=== PATIENT | female | born 1955 | race Caucasian/White ===

== ENCOUNTER 2020-10-27 12:05 | Emergency (ER) | payer MEDICARE, BC, OTHER ==
[2020-10-27 14:08] VITALS: BP 152/92; PULSE 80
--- NOTE | 2020-10-27 14:43 | CR ---
PROCEDURE INFORMATION: Exam: XR Right Wrist Exam date and time: 10/27/2020 2:23 PM Age: 65 years old Clinical indication: Pain; Wrist; Right; Additional info: Fall TECHNIQUE: Imaging protocol: XR Right wrist. Views: 3 or more views. COMPARISON: No relevant prior studies available. FINDINGS: Bones/joints: There is no evidence of acute fracture. There is no evidence of joint malalignment or dislocation. Soft tissues: There are no soft tissue masses or fluid collections. IMPRESSION: 1. No evidence of acute fracture. 2. No evidence of acute dislocation.
--- NOTE | 2020-10-27 14:44 | CR ---
PROCEDURE INFORMATION: Exam: XR Right Hip Exam date and time: 10/27/2020 2:19 PM Age: 65 years old Clinical indication: Hip pain; Right hip; Additional info: Fall TECHNIQUE: Imaging protocol: XR Right hip. Views: 1 view hip with pelvis when performed. COMPARISON: No relevant prior studies available. FINDINGS: Bones/joints: Advanced degenerative changes of the right hip. There is no evidence of acute fracture. There is no evidence of joint malalignment or dislocation. Soft tissues: There are no soft tissue masses or fluid collections. Gastrointestinal tract: A large amount of stool is noted throughout the colon. IMPRESSION: 1. Advanced degenerative changes of the right hip. 2. No evidence of acute fracture. 3. No evidence of acute dislocation. 4. A large amount of stool is noted throughout the colon.
--- NOTE | 2020-10-27 14:45 | EDM.PDOC ---
<Gerardo Blackmon Mayra - Last Filed: 10/27/20 14:49> ED HPI GENERAL MEDICAL PROBLEM - General Chief Complaint: Upper Extremity Injury/Pain Stated Complaint: INJURED RIGHT WRIST Time Seen by Provider: 10/27/20 14:40 Source of Information: Reports: Patient History Limitations: Reports: No Limitations - History of Present Illness INITIAL COMMENTS - FREE TEXT/NARRATIVE: 65 y/o F c/o R wrist pain since 7pm last night. Pt states she was walking out of her camper and slipped on the wet wooden deck. Pt states she fell on her out stretched R arm and now has 4/10 pain and swelling to the R wrist. No LOC. No blood thinners. Denies other injuries. 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 Pain Score (Numeric/FACES): 5 - Related Data Allergies Allergy/AdvReac Type Severity Reaction Status Date / Time erythromycin base Allergy Cannot Verified 10/27/20 14:08 Remember Home Meds: Home Meds Cyclobenzaprine [Flexeril] 10 mg PO DAILY PRN 07/13/15 [History] Diltiazem [Cardizem CD] 240 mg PO DAILY 07/13/15 [History] Escitalopram Oxalate [Lexapro] 20 mg pe PO DAILY 07/13/15 [History] Calcium Carbonate [Tums Extra Strength] 1,500 mg PO ASDIRECTED PRN 08/17/15 [History] Docusate Sodium [Dulcoease] 100 mg PO DAILY PRN 08/17/15 [History] Ibuprofen 600 mg PO TID PRN 08/17/15 [History] Past Medical History HEENT History: Reports: Impaired Vision Cardiovascular History: Reports: Hypertension Respiratory History: Reports: None Gastrointestinal History: Reports: Colon Polyp, GERD Genitourinary History: Reports: None Musculoskeletal History: Reports: Fracture, Fibromyalgia Neurological History: Reports: None Psychiatric History: Reports: Anxiety, Depression Endocrine/Metabolic History: Reports: Obesity/BMI 30+ Hematologic History: Reports: None Immunologic History: Reports: None Oncologic (Cancer) History: Reports: Breast Dermatologic History: Reports: None - Infectious Disease History Infectious Disease History: Reports: Chicken Pox, Measles, Mumps - Past Surgical History Cardiovascular Surgical History: Reports: None GI Surgical History: Reports: Colonoscopy Female Surgical History: Reports: Mastectomy Endocrine Surgical History: Reports: None Musculoskeletal Surgical History: Reports: Other (See Below) Other Musculoskeletal Surgeries/Procedures:: Tibial Plateau FX with bone graft and plate wih 5 pins Oncologic Surgical History: Reports: Mastectomy, Other (See Below) Other Oncologic Surgeries/Procedures: Mastectomy with reconstruction Social & Family History - Family History Family Medical History: No Pertinent Family History - Tobacco Use Tobacco Use Status *Q: Never Tobacco User - Caffeine Use Caffeine Use: Reports: Coffee - Recreational Drug Use Recreational Drug Use: No - Living Situation & Occupation Living situation: Reports: , with Spouse Review of Systems - Review of Systems Review Of Systems: Comprehensive ROS is negative, except as noted in HPI. ED EXAM, GENERAL - Physical Exam Exam: See Below Exam Limited By: No Limitations General Appearance: Alert, WD/WN, No Apparent Distress Respiratory/Chest: No Respiratory Distress, Lungs Clear, Normal Breath Sounds, No Accessory Muscle Use, Chest Non-Tender Cardiovascular: Normal Peripheral Pulses, Regular Rate, Rhythm, No JVD Peripheral Pulses: 2+: Radial (L), Radial (R) GI/Abdominal: Soft, Non-Tender (Female) Exam: Deferred Rectal (Female) Exam: Deferred Back Exam: Normal Inspection, Full Range of Motion Extremities: Other (Swelling to the R wrist, no obvious deformity, radial pulses present, motor function in tact.) Departure - Departure Time of Disposition: 14:49 Disposition: Home, Self-Care 01 Condition: Fair Clinical Impression: Right wrist sprain Qualifiers: Encounter type: initial encounter Qualified Code(s): S63.501A - Unspecified sprain of right wrist, initial encounter - Discharge Information *PRESCRIPTION DRUG MONITORING PROGRAM REVIEWED*: Not Applicable *COPY OF PRESCRIPTION DRUG MONITORING REPORT IN PATIENT ADONAY: Not Applicable Instructions: Wrist Sprain, Adult Forms: ED Department Discharge Additional Instructions: Use tylenol or motrin for pain as needed. Rest, ice, and elevate extremity. If symptoms do not improve in 2 weeks contact your primary care facility. Sepsis Event Note (ED) - Evaluation Sepsis Screening Result: No Definite Risk <Alistair Cr - Last Filed: 10/27/20 15:17> Course - Vital Signs Last Recorded V/S: Last Vital Signs Temp 97.9 F 10/27/20 14:04 Pulse 80 10/27/20 14:04 Resp 20 10/27/20 14:04 BP 152/92 H 10/27/20 14:04 Pulse Ox 98 10/27/20 14:04 - Orders/Labs/Meds Orders: Active Orders 24 hr Category Date Time Status DME for Discharge [COMM] Urgent Oth 10/27/20 14:52 Ordered - Re-Assessments/Exams Free Text/Narrative Re-Assessment/Exam: 10/27/20 15:16 The patient was evaluated by myself. There was nothing else to add to the chart. The entire chart was reviewed during the visit. Sepsis Event Note (ED) - Focused Exam Vital Signs: Vital Signs Temp Pulse Resp BP Pulse Ox 10/27/20 14:04 97.9 F 80 20 152/92 H 98 - My Orders Last 24 Hours: My Active Orders 10/27/20 14:52 DME for Discharge [COMM] Urgent - Assessment/Plan Last 24 Hours: My Active Orders 10/27/20 14:52 DME for Discharge [COMM] Urgent
== END 2020-10-27 15:23 | disposition home or self-care (01) ==
LOC: DL.ED 12:05
DX: S63.501A Unspecified sprain of right wrist, initial encounter (principal); E66.9 Obesity, unspecified; I10 Essential (primary) hypertension; K21.9 Gastro-esophageal reflux disease without esophagitis; Z68.33 Body mass index [BMI] 33.0-33.9, adult; Z88.1 Allergy status to other antibiotic agents; W01.0XXA Fall on same level from slipping, tripping and stumbling without subsequent striking against object, initial encounter
CPT/HCPCS: 73110-RT; 99283-25

== ENCOUNTER 2023-02-15 16:06 | Emergency (ER) | payer MEDICARE, BC, OTHER ==
[2023-02-15 16:24] VITALS: BP 147/99; PULSE 87
[2023-02-15] MEDS ORDERED: Sodium Chloride 0.9% 10 ML Syringe FLUSH PRN (16:26)
[2023-02-15] MEDS ORDERED: Iopamidol 755 Mg/ML 100 ML Bottle IVPUSH ONE (16:29)
[2023-02-15 16:33] LABS: BASOPHILS PERCENT AUTO 0.4 % (0.0-1.0); EOSINOPHILS PERCENT AUTO 2.2 % (1.0-3.0); HEMATOCRIT 46.3 % (37.0-47.0); HEMOGLOBIN 14.4 g/dL (12.0-16.0); MEAN CORPUSCULAR HEMOGLOBIN 29.7 pg (27.0-34.0); MEAN CORPUSCULAR HGB CONC 31.1 g/dL (33.0-35.0); MEAN CORPUSCULAR VOLUME 95.5 fL (80-100); MONOCYTES PERCENT AUTO 9.6 % (2-8); NEUTROPHILS PERCENT AUTO 61.8 % (42.2-75.2); PLATELET COUNT,PLT 257 10^3/uL (150-450); RED BLOOD CELL COUNT 4.85 10^6/uL (4.2-5.4); WHITE BLOOD CELL COUNT,WBC 9.5 10^3/uL (5.0-10.0)
[2023-02-15 16:56] LABS: ALANINE AMINOTRANSFERASE,ALT 17 U/L (14-59); ALBUMIN 3.3 g/dL (3.4-5.0); ALKALINE PHOSPHATASE 78 U/L (46-116); ANION GAP 7.8 mEq/L (7-13); ASPARTATE AMNIOTRANSFERASE,AST 7 U/L (15-37); BILIRUBIN TOTAL 0.4 mg/dL (0.2-1.0); BLOOD UREA NITROGEN,BUN 17 mg/dL (7-18); CALCIUM 8.9 mg/dL (8.5-10.1); CARBON DIOXIDE,CO2 31 mmol/L (21-32); CHLORIDE,CL 104 mmol/L (98-107); CREATININE 1.13 mg/dL (0.55-1.02); EST CRCL DRUG DOSING (CG) 43.99 mL/min; GLUCOSE RANDOM 117 mg/dL (70-99); MAGNESIUM 1.7 mg/dL (1.8-2.4); POTASSIUM,K 3.8 mmol/L (3.5-5.1); SODIUM,NA 139 mmol/L (136-145); TSH ULTRASENSITIVE 1.82 uIU/mL (0.36-3.74)
[2023-02-15 17:00] LABS: A/G RATIO 0.89; C-REACTIVE PROTEIN < 0.50 ng/dL (<=0.50); ESTIMATED GFR 53 mL/min (>=60)
[2023-02-15] MEDS ORDERED: Sodium Chloride 0.9% 1,000 ML IV ONE (17:05)
[2023-02-15 17:29] LABS: APPEARANCE,URINE CLEAR (CLEAR); BILIRUBIN,URINE NEGATIVE (NEGATIVE); COLOR,URINE YELLOW (YELLOW); GLUCOSE,URINE NEGATIVE (NEGATIVE); KETONES,URINE NEGATIVE (NEGATIVE); LEUKOCYTE ESTERASE,URINE TRACE (NEGATIVE); NITRITE,URINE NEGATIVE (NEGATIVE); OCCULT BLOOD,URINE NEGATIVE (NEGATIVE); PROTEIN,URINE NEGATIVE (NEGATIVE); UROBILINOGEN,URINE 0.2 mg/dL (0.2-1.0)
[2023-02-15 17:37] LABS: AMORPHOUS SEDIMENT,URINE RARE /HPF (NOT SEEN); BACTERIA,URINE FEW /HPF (0-FEW/HPF); EPITHELIAL CELLS,URINE MODERATE /HPF (NOT SEEN); MUCUS,URINE FEW /LPF (NOT SEEN); RBC,URINE 0-5 /HPF (0-5)
== END 2023-02-15 18:51 | disposition home or self-care (01) ==
LOC: DL.ED 16:06
DX: R20.2 Paresthesia of skin (principal); E83.42 Hypomagnesemia; E66.9 Obesity, unspecified; Z79.899 Other long term (current) drug therapy; Z88.8 Allergy status to other drugs, medicaments and biological substances; Z79.2 Long term (current) use of antibiotics; Z68.36 Body mass index [BMI] 36.0-36.9, adult
CPT/HCPCS: 36415; 70496; 70498; 80053; 81001; 82947; 83735; 84443; 84484; 85025; 86140; 87086; 93010; 96360; 99284; 99285-25; J3490; J7030; Q9967